=== PATIENT | female | born 1985 | race Asian ===

== ENCOUNTER 2025-03-15 18:56 | Emergency (ER) | payer OTHER, SELFPAY ==
[2025-03-15 19:15] VITALS: BP 131/75; PULSE 88; RESP 16; TEMP 37.1; O2SAT 98; BMI 19.2
[2025-03-15 19:56] LABS: Appearance Urine Clear (Clear); Bilirubin Urine Negative (Negative); Blood Urine Negative (Negative); Color Urine Yellow (Yellow); Glucose Urine Negative (Negative); Ketones Urine Negative (Negative); Leukocyte Esterase Urine Trace (Negative); Nitrite Urine Negative (Negative); Protein Urine Negative (Negative); Specific Gravity Urine 1.015 (1.000-1.030); Urobilinogen Urine 0.2 (0.2-1.0)
[2025-03-15 19:57] LABS: Bacteria Urine Few; RBC Urine 0-2 (0-2); WBC Urine 0-2 (0-5)
--- NOTE | 2025-03-15 20:05 | ED_ITS ---
HPI - General Adult General Chief complaint: Abdominal Pain Stated complaint: abdominal pain lower R Quad Time Seen by Provider: 03/15/25 19:08 Source: patient Mode of arrival: ambulatory Limitations: no limitations History of Present Illness HPI narrative: 39-year-old female with a history of hypothyroidism and untreated anxiety presenting today with left-sided abdominal pain. Pain is located for on the left side of the abdomen and goes from under the left rib all the way down to the left pelvis. Sometimes radiates into the back sometimes it does not. Is been present and constant for the last 3 weeks. Passing gas makes it better. It is not associated with eating. Her appetite has been normal and unchanged. She denies any weight changes. Sometimes she feels nauseated. Denies any vomiting. No dysuria, increased urinary frequency or urgency. She has 1-2 bowel movements per day which are normal for her. She denies any blood in her stools. No fevers or chills. She also complains of bilateral low back pain that is been present for several weeks. None of the pain is causing her to change her activities of daily living. She denies any shortness of breath, no cough. No recent travel or recent surgeries. Patient does not take control. She denies any personal or family history of blood clots. Denies any family history of GI disease. Patient states that she was told 9 years ago that she had endometriosis, has not had follow-up. Patient states that about a month ago she started exercise by doing gentle stretching and some yoga. Past surgical history significant for a 9 years ago. Patient takes levothyroxine and was taking anxiety medications but stopped taking it sometime ago. Related Data Home Medications ?Medication ?Instructions ?Recorded ?Confirmed levothyroxine .ROUTE 03/15/25 Allergies Allergy/AdvReac Type Severity Reaction Status Date / Time lidocaine Allergy Mild rash Verified 03/15/25 19:20 Review of Systems Status of ROS: Reports: 10 or more systems reviewed and unremarkable except as noted in History and below [facility] Medical History Hypothyroidism ?E03.9 - Hypothyroidism, unspecified (ICD-10) Exam Narrative: Exam Narrative: Well-nourished well-developed patient in no acute distress. Alert and oriented. Answers questions appropriately. Mood and affect are appropriate. Thoughts are goal oriented and rational. No tangential or magical thinking noted. Patient speaks in full sentences without needing to catch her breath. HEENT: Normocephalic atraumatic. Pupils are equally round reactive to light. Extraocular muscles are intact. Conjunctivae are moist without any icterus noted. Moist mucous membranes. Posterior pharynx is normal. Neck is soft without any lymphadenopathy or thyromegaly. No masses are appreciated. Cardiovascular: Heart is regular rate and rhythm S1 and S2 are present without any murmurs. Lungs: Clear to auscultation bilaterally no wheezes rhonchi or rales are appreciated. Patient takes deep breaths without any discomfort. Abdomen: Soft and nontender nondistended with normal bowel sounds. No guarding or rebound. No masses or organomegaly appreciated. Patient nods yes when she feels that I push on a tender area, but does not appear uncomfortable. Extremities: Bilateral lower extremities are without edema. Normal DP and PT pulses. Skin: Well perfused without any obvious rashes. Const: Vital Signs, click to edit/add: Vital Signs - 24 hr 03/15/25 19:15 Temperature 98.8 F Pulse Rate [Left P ulse Oximeter] 88 Respiratory Rate 16 Blood Pressure [Ri ght Upper Arm] 131/75 Pulse Oximetry 98 Oxygen Delivery Me thod Room Air Course Course ED Course: Patient requesting ultrasound and MRI. We discussed that we were going to start with blood work and should there be any abnormalities that were concerning we would then discuss imaging. Patient was in agreement with this plan. CBC showed mild anemia with a hemoglobin of 11. UA is unremarkable. Chemistries are unremarkable. LFTs are unremarkable. Normal lipase. Normal CRP. Negative test. TSH, done per patient request, was normal at 2.61. Vital Signs Vital signs: Initial Vital Signs Temperature 98.8 F 03/15/25 19:15 Temperature Source Temporal Artery Scan 03/15/25 19:15 Pulse Rate 88 03/15/25 19:15 Respiratory Rate 16 03/15/25 19:15 Blood Pressure 131/75 03/15/25 19:15 Blood Pressure Mean 93 03/15/25 19:15 Blood Pressure Position Sitting 03/15/25 19:15 Pulse Oximetry 98 03/15/25 19:15 Oxygen Delivery Method Room Air 03/15/25 19:15 Vital Signs Temperature 98.8 F 03/15/25 19:15 Pulse Rate 88 03/15/25 19:15 Respiratory Rate 16 03/15/25 19:15 Blood Pressure 131/75 03/15/25 19:15 Pulse Oximetry 98 03/15/25 19:15 Oxygen Delivery Method Room Air 03/15/25 19:15 Temperature 98.8 F 03/15/25 19:15 Pulse Rate 88 03/15/25 19:15 Respiratory Rate 16 03/15/25 19:15 Blood Pressure 131/75 03/15/25 19:15 Pulse Oximetry 98 03/15/25 19:15 Oxygen Delivery Method Room Air 03/15/25 19:15 Medical Decision Making MDM Narrative Medical decision making narrative: 39-year-old female with abdominal pain x3 weeks. Lab workup unremarkable today. Symptoms are very nonspecific. At this time, given the area that is uncomfortable, CT scan would be the best imaging modality and I think the risk of imaging would outweigh the benefits. Patient will follow-up with her primary care team and OBGYN. Lab Data Lab results reviewed: Yes I reviewed the patient's lab results Labs: Lab Results 03/15/25 03/15/25 03/15/25 Range/Units 19:44 20:03 21:01 WBC 7.49 (4.50-11.00) K/uL RBC 3.84 L (4.00-5.20) m/uL Hgb 11.0 L (12.0-16.0) gm/dL Hct 34.2 (33.0-51.0) % MCV 89 (80-100) fL MCH 29 (26-34) pg MCHC 32 (32-36) gm/dL RDW Coeff of Sary 13.7 (11.5-15.5) % Plt Count 358 (140-440) K/uL Neut % (Auto) 63.6 (42.0-72.0) % Lymph % (Auto) 26.2 (20-44) % [place] % (Auto) 7.3 (0.0-11.0) % Eos % (Auto) 2.1 (0.0-7.0) % Baso % (Auto) 0.5 (0.0-3.0) % Neut # (Auto) 4.76 (1.7-7.0) K/uL Lymph # (Auto) 1.96 (0.90-2.90) K/uL [place] # (Auto) 0.50 (0.00-0.90) K/UL Eos # (Auto) 0.16 (0.00-0.50) K/uL Baso # (Auto) 0.04 (0.00-0.30) K/uL Abs Immat Gran (auto) 0.02 (0.00-0.30) K/uL Imm/Tot Granulo (auto) 0.3 % Sodium 137 (135-149) mmol/L Potassium 4.2 (3.6-5.1) mmol/L Chloride 106 (96-114) mmol/L Carbon Dioxide 25 (20-32) mmol/L Anion Gap 6 L (7-15) mEq/L BUN 11 (5-24) mg/dL Creatinine 0.6 (0.5-1.5) mg/dL Estimated Creat Clear 102.96 Estimated GFR 118 ml/min Glucose 94 (60-115) mg/dL Calcium 9.1 (8.4-10.6) mg/dL Total Bilirubin 0.3 (0.1-1.5) mg/dL Direct Bilirubin 0.3 (0.0-0.5) mg/dL AST 30 (12-35) U/L ALT 18 (4-35) U/L Alkaline Phosphatase 37 L (40-150) U/L C-Reactive Protein < 0.5 L (0.5-1.0) mg/dL Total Protein 7.5 (6.0-8.3) g/dL Albumin 4.3 (3.3-5.0) g/dL Lipase 63 (23-300) U/L Urine Color Yellow Cancelled (Yellow) Urine Appearance Clear Cancelled (Clear) Urine pH 7.0 Cancelled (5.0-8.5) Ur Specific [place] 1.015 Cancelled (1.000-1.030) Urine Protein Negative Cancelled (Negative) Urine Glucose (UA) Negative Cancelled (Negative) Urine Ketones Negative Cancelled (Negative) Urine Blood Negative Cancelled (Negative) Urine Nitrite Negative Cancelled (Negative) Urine Bilirubin Negative Cancelled (Negative) Urine Urobilinogen 0.2 Cancelled (0.2-1.0) Ur Leukocyte Esterase Trace A Cancelled (Negative) Urine RBC 0-2 Cancelled (0-2) Urine WBC 0-2 Cancelled (0-5) Urine WBC Clumps Cancelled Ur Squamous Epith Cells None Cancelled (None-Few) [place] Biurate Crystals Cancelled Calcium Carbonate Cryst Cancelled Calcium Phosphate Cryst Cancelled Calcium Oxalate Crystal Cancelled Cystine Crystals Cancelled Uric Acid Crystals Cancelled Triple Phos Crystals Cancelled Sulfur Crystals Cancelled Cholesterol Crystals Cancelled Tyrosine Crystals Cancelled Hippuric Acid Crystals Cancelled Amorphous Sediment Cancelled Other Sediment Cancelled Urine Bacteria Few A Cancelled (None) Fatty Casts Cancelled Hyaline Casts Cancelled Fine Granular Casts Cancelled Coarse Granular Casts Cancelled Waxy Casts Cancelled RBC Casts Cancelled WBC Casts Cancelled Other Casts Cancelled Urine Starch Cancelled Urine Mucus Cancelled Urine Trichomonas Cancelled Urine Yeast Cancelled Urine HCG, Qual Negative Cancelled (Negative) Discharge Plan Discharge Clinical Impression: Abdominal pain Patient Disposition: Home, Self-Care Condition: Stable Additional Instructions: Your lab work today was unremarkable. Recommend you follow-up with your OBGYN for further management. Prescriptions: No Action levothyroxine .ROUTE Follow Up/Referrals: Provider,Not a Local [Primary Care Provider, Family Practice] Stand Alone Forms: MyHealth Info Instructions
[2025-03-15 20:26] LABS: Basophils Absolute Auto 0.04 K/uL (0.00-0.30); Basophils Percent Auto 0.5 % (0.0-3.0); Eosinophils Absolute Auto 0.16 K/uL (0.00-0.50); Eosinophils Percent Auto 2.1 % (0.0-7.0); Hematocrit 34.2 % (33.0-51.0); Immature Granulocytes Abs Auto 0.02 K/uL (0.00-0.30); Immature Granulocytes Pct Auto 0.3 %; Lymphocytes Absolute Auto 1.96 K/uL (0.90-2.90); Lymphocytes Percent Auto 26.2 % (20-44); Mean Corpuscular HGB Conc 32 gm/dL (32-36); Mean Corpuscular Hemoglobin 29 pg (26-34); Mean Corpuscular Volume 89 fL (80-100); Monocytes Percent Auto 7.3 % (0.0-11.0); Neutrophils Absolute Auto 4.76 K/uL (1.7-7.0); Neutrophils Percent Auto 63.6 % (42.0-72.0); Platelet Count* 358 K/uL (140-440); RDW Coefficient of Variation % 13.7 % (11.5-15.5); Red Blood Count 3.84 m/uL (4.00-5.20); White Blood Count* 7.49 K/uL (4.50-11.00)
[2025-03-15 20:27] LABS: Slide Review Reflex No
[2025-03-15 20:44] LABS: Albumin* 4.3 g/dL (3.3-5.0); Chloride* 106 mmol/L (96-114)
[2025-03-15 20:45] LABS: Potassium* 4.2 mmol/L (3.6-5.1); Sodium* 137 mmol/L (135-149)
[2025-03-15 20:47] LABS: Blood Urea Nitrogen* 11 mg/dL (5-24); Creatinine* 0.6 mg/dL (0.5-1.5); Est. Creatinine Clearance* 102.96; Estimated Glomerular Filt Rate 118 ml/min
[2025-03-15 20:48] LABS: Alanine Aminotransferase* 18 U/L (4-35); Alkaline Phosphatase* 37 U/L (40-150); Anion Gap 6 mEq/L (7-15); Aspartate Amino Transferase* 30 U/L (12-35); Bilirubin Direct* 0.3 mg/dL (0.0-0.5); Bilirubin Total* 0.3 mg/dL (0.1-1.5); Calcium* 9.1 mg/dL (8.4-10.6); Carbon Dioxide* 25 mmol/L (20-32); Glucose* 94 mg/dL (60-115); Lipase* 63 U/L (23-300); Total Protein* 7.5 g/dL (6.0-8.3)
[2025-03-15 20:51] LABS: C Reactive Protein* < 0.5 mg/dL (0.5-1.0)
[2025-03-15 21:17] LABS: Ur HCG Qualitative* Negative (Negative)
== END 2025-03-15 21:40 | disposition home or self-care (01) ==
PROVIDERS: Emergency Provider Family Medicine
DX: R10.31 Right lower quadrant pain (principal)
CPT/HCPCS: 36415; 80048; 80076; 81001; 81025; 83690; 84443; 85025; 86140; 87086; 99283; 99284